=== PATIENT | male | born 1960 | race American Indian/Alaskan Native ===

== ENCOUNTER 2016-07-07 10:22 | Day surgery (SDC) | payer OTHER ==
--- NOTE | 2016-07-01 12:36 | Anesthesia Consultation ---
Anesthesia Consult and Med Hx Date of service: 07/01/16 - Airway Anesthetic Teeth Evaluation: Good ROM Head & Neck: Adequate Mental/Hyoid Distance: Adequate Mallampati Class: Class II Intubation Access Assessment: Probably Good - Pulmonary Exam CTA: Yes - Cardiac Exam Cardiac Exam: RRR - Pre-Operative Health Status ASA Pre-Surgery Classification: ASA2 Nerve Block: supraclavicular - Pulmonary Hx Smoking: Yes - Central Nervous System Hx Psychiatric Problems: No - Other Systems Hx Alcohol Use: Yes (2-4 BEERS DAILY) Hx Substance Use: No Hx Cancer: No - Additional Comments Anesthesia Medical History Comments: PATIENT DOES NOT WANT GENERAL ANESTHESIA. REGIONAL PLUS IV SEDATION ONLY
--- NOTE | 2016-07-06 19:38 | History and Physical Report ---
History of Present Illness Date of examination: 06/30/16 Date of admission: 07/07/16 Chief complaint: Left wrist pain following a job-related injury, painful limitation of movement with clicking. Treated symptomatically with rehabilitation and injection, no improvement. Subsequent MRI scan confirming TFc tear, being admitted for debridement of triangular fibrocartilage. Past History Past Medical History: No medical history Medications and Allergies Allergies Allergy/AdvReac Type Severity Reaction Status Date / Time No Known Allergies Allergy Unverified 06/24/16 14:45 Home Medications Medication Instructions Recorded Confirmed Last Taken Type No Known Home Medications [No 06/24/16 06/24/16 Unknown History Reported Home Medications] Active Meds: Active Medications Lactated Ringer's (Lactated Ringers) 1,000 mls @ 100 mls/hr IV DIRECT JERRI Cefazolin Sodium (Ancef/Sterile Water 2 Gm/20 Ml) 2 gm in 20 mls @ 80 mls/hr IV PREOP NR PRN Reason: Protocol Stop: 07/07/16 23:59 Midazolam HCl (Versed) 2 mg IV PREOP NR Stop: 07/07/16 23:59 Review of Systems All systems: negative Exam - Extremities Extremities: abnormal (Right wrist with tenderness at the distal radioulnar joint with catching sensation on axial loading and pronation supination. No obvious deformity, no neurovascular deficit. Pain with range of motion.) Assessment and Plan - Patient Problems (1) Triangular fibrocartilage complex tear Status: Acute Qualifiers: Encounter type: initial encounter Laterality: left Qualified Code(s): S63.592A - Other specified sprain of left wrist, initial encounter Plan to address problem: Debridement triangular fibrocartilage, open or arthroscopic. Procedure, competitions and outcome discussed with.
[~2016-07-07 10:22] MED LIST: ANCEF/STERILE WATER 2 GM/20 ML 2 GM/20 ML SYRINGE IV NR; LACTATED RINGERS 1,000 ML IV SCH; PEPCID PO NR; SUBLIMAZE IV ONE
[2016-07-07] MEDS: VERSED IV NR ×2 (11:18→12:36)
[2016-07-07] MEDS ORDERED: ZOFRAN IV PRN (12:09)
[2016-07-07] MEDS ORDERED: DILAUDID IV PRN (12:09)
--- NOTE | 2016-07-07 12:09 | Anesthesia Day of Surgery ---
Anesthesia Day of Surgery - Day of Surgery Patient Examined: Yes Patient H&P Reviewed: Yes Patient is NPO: Yes
[2016-07-07] MEDS ORDERED: MARCAINE-EPI 0.5%-1:200,000 INFILTRATI ONE (12:31)
[2016-07-07] MEDS ORDERED: DECADRON ONE (12:31)
[2016-07-07] MEDS ORDERED: XYLOCAINE 1% 20 mL ONE (12:38)
[2016-07-07] MEDS ORDERED: XYLOCAINE MPF 2% ONE (15:12)
[2016-07-07] MEDS ORDERED: DIPRIVAN 10 MG/ML IV ONE ×2 (15:14)
[2016-07-07] MEDS ORDERED: SUBLIMAZE ONE (15:28)
[2016-07-07] MEDS ORDERED: MARCAINE 0.25% INFILTRATI ONE ×2 (15:44→16:13)
[2016-07-07] MEDS ORDERED: NACL 0.9% IR ONE (15:44)
--- NOTE | 2016-07-07 16:17 | Procedure Note ---
Date of procedure: 07/07/16 Pre-op diagnosis: TFC tear left wrist Post-op diagnosis: same Procedure: Open repair of TFC tear left wrist Anesthesia: MAC, regional Surgeon: LAUREN ECHOLS Estimated blood loss: none Pathology: none Condition: stable Disposition: PACU
--- NOTE | 2016-07-07 16:21 | Discharge Summary ---
Providers - Providers Date of discharge: 07/07/16 Attending physician: LAUREN ECHOLS Primary care physician: JENNA PEÑA MD Hospitalization Reason for admission: TFC tear left wrist Condition: Stable Procedures: Open repair of TFc tear left wrist Hospital course: no complications Disposition: DISCHARGED TO HOME OR SELFCARE - Discharge Diagnoses (1) Triangular fibrocartilage complex tear Status: Acute Qualifiers: Encounter type: initial encounter Laterality: left Qualified Code(s): S63.592A - Other specified sprain of left wrist, initial encounter Core Measure Documentation - Palliative Care Palliative Care/ Comfort Measures: Not Applicable - Core Measures Any of the following diagnoses?: none Exam - Constitutional Vitals: Temp Pulse Resp BP Pulse Ox 98.5 F 95 H 14 125/94 97 07/07/16 11:47 07/07/16 13:14 07/07/16 13:14 07/07/16 13:14 07/07/16 13:14 Plan Activity: no restrictions, other Diet: regular Wound: per your surgeon's advice Special Instructions: other (Sling/ elevation/ ice packs) Follow up with: JENNA PEÑA MD [Primary Care Provider] - 7 Days LAUREN ECHOLS MD [Staff Physician] - 7 Days
[2016-07-07] MEDS ORDERED: ZOFRAN ONE (16:22)
[2016-07-07] MEDS ORDERED: LACTATED RINGERS 1,000 ML ONE (16:23)
[2016-07-07] MEDS ORDERED: TORADOL ONE (16:27)
--- NOTE | 2016-07-07 17:21 | Post Anesthesia Evaluation ---
- Post Anesthesia Evaluation Patient Participated: Yes Airway Patent: Yes Stable Respiratory Function: Yes Temp > 96.8F: Yes Pain Manageable: Yes Adequeate Hydration: Yes Anesthesia Complications: No Block Receding Appropriately: Not Applicable
--- NOTE | 2016-07-07 21:08 | Operative Report ---
PREOPERATIVE DIAGNOSIS: Triangular fibrocartilage tear, left wrist. POSTOPERATIVE DIAGNOSIS: Triangular fibrocartilage tear, left wrist. OPERATIVE PROCEDURE: Open repair TFC tear, left wrist. SURGEON: Claritza Velazco MD [employer] CUTTER OPERATOR: Farzaneh Stokes CSA ANESTHESIA: Regional block with general sedation. TOURNIQUET TIME: 30 minutes. PROCEDURE IN DETAIL: The patient was taken to surgery suite. Satisfactory analgesia obtained with regional block supplemented with general sedation. Left upper limb prepped with ChloraPrep, satisfactorily draped. The correct patient, procedure, sites are confirmed. After exsanguinating, tourniquet inflated to 250 mmHg pressure. Incision was made over the dorsal ulnar aspect of the wrist over the ulnar styloid deepened to the thickness of skin and subcutaneous. Deep fascia incised and the capsulotomy was then performed. The TFC tear was visualized. A micro Mitek anchor was positioned into the dorsal ulnar aspect of the metaphyseal region of the ulna. The nonabsorbable sutures were then passed through the margin of the triangular fibrocartilage. Cartilage was pulled into the reduced position and secured in place. Further repair was carried out using 2-0 Vicryl sutures and the deep fascia was then repaired in the standard fashion using 3-0 Vicryl and skin with 4-0 nylon. Sterile dressings were applied. The wrist was immobilized in a dorsal splint and was transferred to recovery room to be discharged when discharge criteria are met. HOMEGOING INSTRUCTIONS: Elevation, localized packs, analgesics, follow up at the office in 7 to 10 days. [facility]# [id number] MORENA/ESA WONG
[2016-07-07 21:19] VITALS: BP 129/95
== END 2016-07-07 18:45 | disposition home or self-care (01) ==
LOC: OR 10:22
PROVIDERS: ATTEND Orthopaedic Surgery
DX: S63.592A Other specified sprain of left wrist, initial encounter (principal); F17.210 Nicotine dependence, cigarettes, uncomplicated; Z72.89 Other problems related to lifestyle; X58.XXXA Exposure to other specified factors, initial encounter
CPT/HCPCS: 25107; 64450; C1713; J0690; J1100; J1885; J2250; J2405; J2704; J3010; J7120